=== PATIENT | female | born 1990 | race Caucasian/White ===

== ENCOUNTER 2018-10-04 18:20 | Emergency (ER) | payer SELFPAY ==
[2018-10-04] MEDS ORDERED: Sodium Chloride 0.9% 1,000 ML IV ONE (18:26)
--- NOTE | 2018-10-04 20:36 | EDM.PDOCBH ---
ED HPI GENERAL MEDICAL PROBLEM - General Chief Complaint: Drug or Alcohol Abuse Stated Complaint: INEBRIATION Time Seen by Provider: 10/04/18 18:20 Source of Information: Reports: Patient, Police History Limitations: Reports: Intoxication - History of Present Illness INITIAL COMMENTS - FREE TEXT/NARRATIVE: 28 y.o.w.f with a h/o ETOH abuse was drinking havely at he [employer] in [place] and was "kicked out". Police was called and brought her to the ED for fpc clearance. Pt refused to get out of the police car and and was verbally abusive to the police and medical staff. After a second police arrived, pt was brought from the parking lot the the ED, still crying and swearing. After a long conversation with the nurse, pt agreed to be cooperative and allowed blood to be taken. Pt refused an IV to be placed, refused IVs, NS and refused to take Thiamin po/im/iv. Her parents called and were concerned about her daughter was stating in the past year she want to kill herself. Pt was never evaluated for suicidal ideas/attempt. Pt denied suicidal ideas vehemently. No trauma. No N/V/ D or any other acute medial issues. BP 147/87 Pulse 104 RR 18 Temp 36.8 Pulse ox 98% on RA Onset Date: 10/04/18 Onset Time: 17:00 Duration: Hour(s):, Getting Worse, Intermittent Location: Reports: Generalized Quality: Reports: Same as Previous Episode, Other (intoxicated) Severity: Moderate Improves with: Reports: Other (water) Worsens with: Reports: Other (etoh) Context: Reports: Other (drinking, was kicked out of a restaurant, [employer]) Associated Symptoms: Reports: Other (agitated) Treatments QUALITY COORDINATOR: Reports: Other (see below) (etoh) - Related Data Allergies Allergy/AdvReac Type Severity Reaction Status Date / Time venom-honey bee Allergy Edema Verified 10/04/18 19:36 [bee venom (honey bee)] Social & Family History - Tobacco Use Smoking Status *Q: Current Some Day Smoker Years of Tobacco use: 3 Packs/Tins Daily: 0.5 - Caffeine Use Caffeine Use: Reports: Coffee - Alcohol Use Days Per Week of Alcohol Use: 1 Number of Drinks Per Day: 4 Total Drinks Per Week: 4 - Recreational Drug Use Recreational Drug Use: No ED ROS GENERAL - Review of Systems Review Of Systems: Unable To Obtain ED EXAM, BEHAVIORAL HEALTH - Physical Exam Exam: See Below Exam Limited By: Intoxication General Appearance: Alert, WD/WN, Mild Distress Eye Exam: Bilateral Eye: Normal Inspection Ears: Normal External Exam, Normal Canal Nose: Normal Inspection Throat/Mouth: Normal Inspection, Normal Lips, Normal Teeth, Normal Gums, Normal Voice, No Airway Compromise Head: Atraumatic, Normocephalic Neck: Normal Inspection, Supple, Non-Tender, Full Range of Motion Respiratory/Chest: No Respiratory Distress, Lungs Clear, Normal Breath Sounds, No Accessory Muscle Use, Chest Non-Tender Cardiovascular: Normal Peripheral Pulses, Regular Rate, Rhythm, No Edema, No Gallop, No JVD, No Murmur, No Rub GI/Abdominal: Normal Bowel Sounds, Soft, Non-Tender, No Organomegaly, No Distention, No Abnormal Bruit, No Mass, Pelvis Stable (Female) Exam: Deferred Rectal (Female) Exam: Deferred Back Exam: Normal Inspection, Full Range of Motion Extremities: Normal Inspection, Normal Range of Motion, Non-Tender, No Pedal Edema Neurological: Alert, CN II-XII Intact, Oriented x 3 Psychiatric: Alert, Agitated, Poor Eye Contact Skin Exam: Warm, Dry, Intact, Normal color, No rash COURSE, BEHAVIORAL HEALTH COMP - Course Vital Signs: Last Vital Signs Temp 36.7 C 10/04/18 20:45 Pulse 94 10/04/18 20:45 Resp 18 10/04/18 20:45 BP 144/87 H 10/04/18 20:45 Pulse Ox 100 10/04/18 20:45 28 y.o.w.f with a h/o ETOH abuse was drinking havely at he [employer] in [place] and was "kicked out". Police was called and brought her to the ED for fpc clearance. Pt refused to get out of the police car and and was verbally abusive to the police and medical staff. After a second police arrived, pt was brought from the parking lot the the ED, still crying and swearing. After a long conversation with the nurse, pt agreed to be cooperative and allowed blood to be taken. Pt refused an IV to be placed, refused IVs, NS and refused to take Thiamin po/im/iv. Her parents called and were concerned about her daughter was stating in the past year she want to kill herself. Pt was never evaluated for suicidal ideas/attempt. Pt denied suicidal ideas vehemently. No trauma. No N/V/ D or any other acute medial issues. BP 147/87 Pulse 104 RR 18 Temp 36.8 Pulse ox 98% on RA PE: WNWD W F intoxicated and verbally abusive to police Labs: HCG neg ETOH 0.25 Na 147 Cl 111, reminder of labs were neg Impression: intoxication, Hypernatremia, dehydration Tx: Pt refused IV or any kind of meds Reeaxm: Pt was drinking 1.5 liters of waster here and was picked up by her friend Thien Emanuel, who will observe her for 24 hours. Parents will not pick her up unless her ETOH is less then 0.08 Plan: D/C with instructions Orders, Labs, Meds: Laboratory Tests 10/04/18 10/04/18 10/04/18 Range/Units 18:32 18:32 18:32 WBC 7.9 (4.5-12.0) X10-3/uL RBC 4.61 (3.23-5.20) x10(6)uL Hgb 13.9 (11.5-15.5) g/dL Hct 40.4 (30.0-51.3) % MCV 87.6 (80-96) fL MCH 30.2 (27.7-33.6) pg MCHC 34.5 (32.2-35.4) g/dL RDW 11.6 (11.5-15.5) % Plt Count 240 (125-369) X10(3)uL MPV 10.4 (7.4-10.4) fL Neut % (Auto) 58.8 (46-82) % Lymph % (Auto) 36.6 (13-37) % [place] % (Auto) 3.8 L (4-12) % Eos % (Auto) 1 (1.0-5.0) % Baso % (Auto) 0 (0-2) % Neut # (Auto) 4.7 (1.6-8.3) # Lymph # (Auto) 2.9 (0.6-5.0) # [place] # (Auto) 0.3 (0.0-1.3) # Eos # (Auto) 0.0 (0.0-0.8) # Baso # (Auto) 0.0 (0.0-0.2) # Sodium 147 H (135-145) mmol/L Potassium 4.2 (3.5-5.3) mmol/L Chloride 111 H (100-110) mmol/L Carbon Dioxide 28 (21-32) mmol/L BUN 14 (7-18) mg/dL Creatinine 0.7 (0.55-1.02) mg/dL Est Cr Clr Drug Dosing TNP Estimated GFR (MDRD) > 60 (>60) BUN/Creatinine Ratio 20.0 (9-20) Glucose 96 (80-116) mg/dL Calcium 8.8 (8.6-10.2) mg/dL Urine Color (YELLOW) Urine Appearance (CLEAR) Urine pH (5.0-6.5) Ur Specific Felicity (1.010-1.025) Urine Protein (NEGATIVE) mg/dL Urine Glucose (UA) (NEGATIVE) mg/dL Urine Ketones (NEGATIVE) mg/dL Urine Occult Blood (NEGATIVE) Urine Nitrite (NEGATIVE) Urine Bilirubin (NEGATIVE) Urine Urobilinogen (NEGATIVE) mg/dL Ur Leukocyte Esterase (NEGATIVE) Urine RBC (0) Urine WBC (0) Ur Squamous Epith Cells (NS,R,O) Urine Bacteria (NS) Urine HCG, Qual (NEGATIVE) Urine Opiates Screen (NEGATIVE) Ur Oxycodone Screen (NEGATIVE) Ur Propoxyphene Screen (NEGATIVE) Ur Barbituates Screen (NEGATIVE) Ur Tricyclics Screen (NEGATIVE) Ur Phencyclidine Scrn (NEGATIVE) Ur Amphetamine Screen (NEGATIVE) Urine MDMA Screen (NEGATIVE) U Benzodiazepines Scrn (NEGATIVE) U Cocaine Metab Screen (NEGATIVE) U Marijuana (THC) Screen (NEGATIVE) Ethyl Alcohol 0.25 H* (<0.03) % 10/04/18 10/04/18 10/04/18 Range/Units 19:51 19:55 19:55 WBC (4.5-12.0) X10-3/uL RBC (3.23-5.20) x10(6)uL Hgb (11.5-15.5) g/dL Hct (30.0-51.3) % MCV (80-96) fL MCH (27.7-33.6) pg MCHC (32.2-35.4) g/dL RDW (11.5-15.5) % Plt Count (125-369) X10(3)uL MPV (7.4-10.4) fL Neut % (Auto) (46-82) % Lymph % (Auto) (13-37) % [place] % (Auto) (4-12) % Eos % (Auto) (1.0-5.0) % Baso % (Auto) (0-2) % Neut # (Auto) (1.6-8.3) # Lymph # (Auto) (0.6-5.0) # [place] # (Auto) (0.0-1.3) # Eos # (Auto) (0.0-0.8) # Baso # (Auto) (0.0-0.2) # Sodium (135-145) mmol/L Potassium (3.5-5.3) mmol/L Chloride (100-110) mmol/L Carbon Dioxide (21-32) mmol/L BUN (7-18) mg/dL Creatinine (0.55-1.02) mg/dL Est Cr Clr Drug Dosing Estimated GFR (MDRD) (>60) BUN/Creatinine Ratio (9-20) Glucose (80-116) mg/dL Calcium (8.6-10.2) mg/dL Urine Color Yellow (YELLOW) Urine Appearance Clear (CLEAR) Urine pH 5.0 (5.0-6.5) Ur Specific Felicity 1.010 (1.010-1.025) Urine Protein Negative (NEGATIVE) mg/dL Urine Glucose (UA) Normal (NEGATIVE) mg/dL Urine Ketones Negative (NEGATIVE) mg/dL Urine Occult Blood Negative (NEGATIVE) Urine Nitrite Negative (NEGATIVE) Urine Bilirubin Negative (NEGATIVE) Urine Urobilinogen Normal (NEGATIVE) mg/dL Ur Leukocyte Esterase Negative (NEGATIVE) Urine RBC 0-5 (0) Urine WBC 0-5 (0) Ur Squamous Epith Cells Occasional (NS,R,O) Urine Bacteria Rare H (NS) Urine HCG, Qual Negative (NEGATIVE) Urine Opiates Screen Negative (NEGATIVE) Ur Oxycodone Screen Negative (NEGATIVE) Ur Propoxyphene Screen Negative (NEGATIVE) Ur Barbituates Screen Negative (NEGATIVE) Ur Tricyclics Screen Negative (NEGATIVE) Ur Phencyclidine Scrn Negative (NEGATIVE) Ur Amphetamine Screen Negative (NEGATIVE) Urine MDMA Screen Negative (NEGATIVE) U Benzodiazepines Scrn Negative (NEGATIVE) U Cocaine Metab Screen Negative (NEGATIVE) U Marijuana (THC) Screen Negative (NEGATIVE) Ethyl Alcohol (<0.03) % Medications Discontinued Medications Generic Name Dose Route Start Last Admin Trade Name Freq PRN Reason Stop Dose Admin Sodium Chloride 1,000 mls @ 999 mls/hr 10/04/18 18:26 10/04/18 20:40 Normal Saline IV 10/04/18 19:26 Not Given .BOLUS ONE Departure - Departure Time of Disposition: 20:36 Disposition: Home, Self-Care 01 Condition: Good Clinical Impression: ETOH abuse - Discharge Information Instructions: Alcohol Intoxication, [id number] Referrals: PCP,None [Primary Care Provider] - Forms: ED Department Discharge Additional Instructions: You need to be observed for the next 24 hours by your Friend Thien Emanuel, please increase water intake, take multivitamins, Thiamin and Multivitamins, please f/u, come back if your symptoms get worse acutely
[2018-10-04 20:58] VITALS: BP 144/87
== END 2018-10-04 20:46 | disposition home or self-care (01) ==
LOC: FB.ED 18:20
DX: E87.0 Hyperosmolality and hypernatremia (principal); E86.0 Dehydration; F10.129 Alcohol abuse with intoxication, unspecified; Y90.0 Blood alcohol level of less than 20 mg/100 ml; F17.210 Nicotine dependence, cigarettes, uncomplicated; Z91.030 Bee allergy status
CPT/HCPCS: 36415; 80048; 80305; 81001; 81025; 85025; 99284; G0480